=== PATIENT | female | born 1995 | race Caucasian/White ===

== ENCOUNTER 2022-06-30 23:27 | Emergency (ER) | payer BC ==
[2022-06-30 23:35] VITALS: BP 127/49; PULSE 107; RESP 18; TEMP 99.4; BMI 38.0
[2022-06-30] MEDS ORDERED: ALBUTEROL SO4 0.083% IH SOL 2.5 MG/3 ML VIAL.NEB. NEB ONE ×2 (23:41→23:42)
== END 2022-07-01 00:41 | disposition home or self-care (01) ==
LOC: FER 23:27
PROC: 3E0F7GC Introduction of Other Therapeutic Substance into Respiratory Tract, Via Natural or Artificial Opening (ICD-10-PCS; principal; 2022-06-30)
DX: J20.9 Acute bronchitis, unspecified (principal)
CPT/HCPCS: 0241U-QW; 71046-TC-FY; 99284-25